=== PATIENT | male | born 1985 | race Caucasian/White ===

== ENCOUNTER 2018-01-10 07:18 | Emergency (ER) | payer OTHER ==
[2018-01-10] MEDS ORDERED: ONDANSETRON 4 MG/2 ML VIAL IVP STA (07:32)
[2018-01-10] MEDS ORDERED: KETOROLAC 30 MG/ML 1 ML VIAL IVP STA (07:32)
[2018-01-10] MEDS ORDERED: SODIUM CHLORIDE 0.9% 1,000 ML IV STA (07:32)
--- NOTE | 2018-01-10 07:35 | ED ---
General Adult HPI - General Chief complaint: Abdominal Pain Stated complaint: left side pain Time Seen by Provider: 01/10/18 07:18 Source: patient, RN notes reviewed Mode of arrival: ambulatory Limitations: no limitations - History of Present Illness Initial comments: This is a 32-year-old male who presents emergency Department complaining of left sided back pain which she states is moved to his left flank. Patient states it started at 5:30 this morning woke him up he states the pain was severe. Patient states he is also nauseated and has been vomiting with the pain. Patient denies any diarrhea. Patient denies any fever chills. Patient states she's had episodes of this back pain throughout the month and usually starts in the morning. Patient states he believes it was on both sides however. Patient denies any hematuria urinary frequency or dysuria. Patient denies any history of kidney stones for himself or his family. Patient denies any abdominal surgeries. Patient denies any chest pain difficulty breathing or shortness of breath per patient denies any cough. Patient denies any lightheadedness or dizziness. Patient denies any numbness or weakness. - Related Data Home Medications Medication Instructions Recorded Confirmed No Known Home Medications 08/06/14 08/06/14 Allergies Allergy/AdvReac Type Severity Reaction Status Date / Time No Known Allergies Allergy Verified 08/06/14 04:35 Review of Systems ROS Statement: Those systems with pertinent positive or pertinent negative responses have been documented in the HPI. ROS Other: All systems not noted in ROS Statement are negative. Past Medical History Past Medical History: No Reported History Additional Past Medical History / Comment(s): MVP History of Any Multi-Drug Resistant Organisms: None Reported Past Surgical History: No Surgical Hx Reported Past Psychological History: No Psychological Hx Reported Smoking Status: Current every day smoker Past Alcohol Use History: Rare Past Drug Use History: Marijuana General Exam - General Exam Comments Initial Comments: GENERAL: Patient is well-developed and well-nourished. Patient is nontoxic and well- hydrated and is in moderate distress. ENT: Neck is soft and supple. No significant lymphadenopathy is noted. Oropharynx is clear. Moist mucous membranes. Neck has full range of motion without eliciting any pain. EYES: The sclera were anicteric and conjunctiva were pink and moist. Extraocular movements were intact and pupils were equal round and reactive to light. Eyelids were unremarkable. PULMONARY: Unlabored respirations. Good breath sounds bilaterally. No audible rales rhonchi or wheezing was noted. CARDIOVASCULAR: There is a regular rate and rhythm without any murmurs gallops or rubs. ABDOMEN: Soft and nontender with normal bowel sounds. No palpable organomegaly was noted. There is no palpable pulsatile mass. SKIN: Skin is clear with no lesions or rashes and otherwise unremarkable. NEUROLOGIC: Patient is alert and oriented x3. Cranial nerves II through XII are grossly intact. Motor and sensory are also intact. Normal speech, volume and content. Symmetrical smile. MUSCULOSKELETAL: Normal extremities with adequate strength and full range of motion. No lower extremity swelling or edema. No calf tenderness. Patient has some left-sided CVA tenderness LYMPHATICS: No significant lymphadenopathy is noted PSYCHIATRIC: Normal psychiatric evaluation. Limitations: no limitations Course Vital Signs 01/10/18 07:19 Temperature 98.2 F Pulse Rate 73 Respiratory 18 Rate Blood Pressure 147/91 O2 Sat by Pulse 98 Oximetry Medical Decision Making - Medical Decision Making CT of the abdomen pelvis show moderate constipation no nephrolithiasis or hydronephrosis. No acute findings to explain the patient's pain. - Lab Data Result diagrams: 01/10/18 07:33 01/10/18 07:33 Lab Results 01/10/18 01/10/18 01/10/18 Range/Units 07:33 07:33 07:33 WBC 8.9 (3.8-10.6) k/uL RBC 4.54 (4.30-5.90) m/uL Hgb 13.9 (13.0-17.5) gm/dL Hct 40.4 (39.0-53.0) % MCV 89.0 (80.0-100.0) fL MCH 30.6 (25.0-35.0) pg MCHC 34.4 (31.0-37.0) g/dL RDW 12.7 (11.5-15.5) % Plt Count 266 (150-450) k/uL Neutrophils % 75 % Lymphocytes % 17 % Monocytes % 6 % Eosinophils % 2 % Basophils % 0 % Neutrophils # 6.6 (1.3-7.7) k/uL Lymphocytes # 1.5 (1.0-4.8) k/uL Monocytes # 0.5 (0-1.0) k/uL Eosinophils # 0.1 (0-0.7) k/uL Basophils # 0.0 (0-0.2) k/uL Sodium 142 (137-145) mmol/L Potassium 4.9 (3.5-5.1) mmol/L Chloride 108 H (98-107) mmol/L Carbon Dioxide 28 (22-30) mmol/L Anion Gap 6 mmol/L BUN 21 H (9-20) mg/dL Creatinine 1.01 (0.66-1.25) mg/dL Est GFR (CKD-EPI)AfAm >90 (>60 ml/min/1.73 sqM) Est GFR (CKD-EPI)NonAf >90 (>60 ml/min/1.73 sqM) Glucose 105 H (74-99) mg/dL Calcium 9.6 (8.4-10.2) mg/dL Total Bilirubin 0.3 (0.2-1.3) mg/dL AST 19 (17-59) U/L ALT 37 (21-72) U/L Alkaline Phosphatase 55 (38-126) U/L Total Protein 6.5 (6.3-8.2) g/dL Albumin 4.0 (3.5-5.0) g/dL Amylase 54 (30-110) U/L Lipase 68 (23-300) U/L Urine Color Yellow Urine Appearance Clear (Clear) Urine pH 5.5 (5.0-8.0) Ur Specific [place] 1.017 (1.001-1.035) Urine Protein Trace H (Negative) Urine Glucose (UA) Negative (Negative) Urine Ketones Negative (Negative) Urine Blood Large H (Negative) Urine Nitrite Negative (Negative) Urine Bilirubin Negative (Negative) Urine Urobilinogen <2.0 (<2.0) mg/dL Ur Leukocyte Esterase Negative (Negative) Urine RBC >182 H (0-5) /hpf Urine WBC 1 (0-5) /hpf Urine Mucus Few H (None) /hpf Disposition Clinical Impression: Left flank pain, Hematuria Disposition: HOME SELF-CARE Condition: Good Instructions: Hematuria (ED), Flank Pain (ED) Additional Instructions: Patient is to follow-up with urology for hematuria. Is patient prescribed a controlled substance at d/c from ED?: No Referrals: None,Stated [Primary Care Provider] - 1-2 days Time of Disposition: 09:57
--- NOTE | 2018-01-10 08:16 | CT ---
EXAMINATION TYPE: CT abdomen pelvis wo con DATE OF EXAM: 01/10/2018 COMPARISON: None HISTORY: Lt flank pain CT DLP: 460.6 mGycm Automated exposure control for dose reduction was used. TECHNIQUE: Helical acquisition of images was performed from the lung bases through the pelvis. FINDINGS: LUNG BASES: Bibasilar subsegmental dependent atelectasis is noted. LIVER/GB: The liver has an unremarkable unenhanced morphology. No cholelithiasis is seen. PANCREAS: No significant abnormality is seen. SPLEEN: No splenomegaly. Splenule is noted adjacent to the [place] spleen. ADRENALS: No nodularity or thickening. KIDNEYS: No significant abnormality is seen. FREE AIR: No free air is visualized ADENOPATHY: No greater than 1 cm short axis lymph nodes are noted within the abdomen or pelvis. REPRODUCTIVE ORGANS: No significant abnormality is seen URINARY BLADDER: No significant abnormality is seen. No urinary bladder calculi are present. OSSEOUS STRUCTURES: Probable vertebral body hemangioma is seen of the L4 vertebral body. Osseous str uctures appear intact. BOWEL: There is a moderate amount retained colonic stool seen. Appendix is air-filled and within norm al limits of size. Long segment decompression of the sigmoid colon is noted without proximal dilatati on therefore likely representative personal service of colonic spasm. IMPRESSION: 1. NO HYDRONEPHROSIS OR NEPHROLITHIASIS. NO URINARY BLADDER CALCULI ARE SEEN. 2. LONG SEGMENT SIGMOID DECOMPRESSION IS LIKELY RUBBISH COLLECTION SUPERVISOR OF COLONIC SPASM RATHER THAN STRICTURE THERE IS NO PROXIMAL DILATATION. NO SURROUNDING INFLAMMATORY FAT STRANDING TO SUGGEST COLITIS. OV ERALL THERE IS A MODERATE AMOUNT RETAINED COLONIC STOOL.
[2018-01-10 08:31] LABS: Appearance,Urine Clear (Clear); Bilirubin,Urine Negative (Negative); Blood,Urine Large (Negative); Color,Urine Yellow; Glucose,Urine (UA) Negative (Negative); Ketones,Urine Negative (Negative); Leukocyte Esterase,Urine Negative (Negative); Mucus,Urine Few /hpf; Nitrite,Urine Negative (Negative); PH, Urine 5.5 (5.0-8.0); Protein,Urine Trace (Negative); RBC,Urine >182 /hpf (0-5); Specific Gravity,Urine 1.017 (1.001-1.035); Urobilinogen,Urine <2.0 mg/dL (<2.0); WBC,Urine 1 /hpf (0-5)
[2018-01-10 08:34] LABS: Basophils % (A) 0 %; Eosinophils # (A) 0.1 k/uL (0-0.7); Eosinophils % (A) 2 %; HCT 40.4 % (39.0-53.0); HGB 13.9 gm/dL (13.0-17.5); Lymphocytes # (A) 1.5 k/uL (1.0-4.8); Lymphocytes % (A) 17 %; MCH 30.6 pg (25.0-35.0); MCHC 34.4 g/dL (31.0-37.0); Mean Platelet Volume 6.1; Monocytes # (A) 0.5 k/uL (0-1.0); Monocytes % (A) 6 %; Neutrophils # (A) 6.6 k/uL (1.3-7.7); Neutrophils % (A) 75 %; Platelet Count 266 k/uL (150-450); RBC 4.54 m/uL (4.30-5.90); RDW 12.7 % (11.5-15.5); WBC 8.9 k/uL (3.8-10.6)
[2018-01-10 08:39] LABS: ALT 37 U/L (21-72); AST 19 U/L (17-59); Alkaline Phosphatase 55 U/L (38-126); Amylase 54 U/L (30-110); Anion Gap 6 mmol/L; Blood Urea Nitrogen 21 mg/dL (9-20); Calcium 9.6 mg/dL (8.4-10.2); Carbon Dioxide 28 mmol/L (22-30); Chloride 108 mmol/L (98-107); Glucose 105 mg/dL (74-99); Lipase 68 U/L (23-300); Potassium 4.9 mmol/L (3.5-5.1); Sodium 142 mmol/L (137-145); Total Bilirubin 0.3 mg/dL (0.2-1.3); Total Protein 6.5 g/dL (6.3-8.2)
--- NOTE | 2018-01-10 09:29 | XR ---
EXAMINATION TYPE: XR KUB DATE OF EXAM: 01/10/2018 9:25 AM CLINICAL HISTORY: Abdominal pain TECHNIQUE: Single upright image of the abdomen is obtained. COMPARISON: None. FINDINGS: Few small bowel air-fluid levels are scattered throughout the abdomen without dilated large or small bowel. There is a moderate amount retained colonic stool throughout the colon. Scattered ga s is seen in nondilated small bowel loops. Gas and fecal material is seen in nondilated colon. There is no visceromegaly, pneumoperitoneum, or abnormal calcification appreciated. The lung bases are jan r and the osseous structures are unremarkable other than minimal left basilar atelectasis near the co stophrenic angle. IMPRESSION: Diffuse scattered small bowel air-fluid levels are seen without dilation of large or smal l bowel. Findings could be on the basis of enteritis or mild ileus.
[2018-01-10 10:15] VITALS: BP 137/56; PULSE 75; RESP 19; TEMP 97.9
[2018-01-12 12:38] LABS: N. gonorrhoeae,PCR Negative (Neg,Equiv); Neisseria Source Urine
[2018-01-12 13:13] LABS: C. trachomatis,PCR Negative (Neg,Equiv); Chlamydia trachomatis Source Urine
== END 2018-01-10 10:07 | disposition home or self-care (01) ==
LOC: EC 07:18
DX: R31.9 Hematuria, unspecified (principal); R10.9 Unspecified abdominal pain; K59.00 Constipation, unspecified; R11.2 Nausea with vomiting, unspecified; F17.200 Nicotine dependence, unspecified, uncomplicated
CPT/HCPCS: 36415; 80053; 82150; 83690; 85025; 81001; 87491; 87591; 87086; 74018; 74176; 99284; 96374; 96375; 96361; J2405; J1885

== ENCOUNTER 2018-12-16 11:06 | Emergency (ER) | payer OTHER ==
[2018-12-16 11:16] VITALS: TEMP 98.5
[2018-12-16] MEDS ORDERED: HYDROmorphone 0.5 MG/0.5 ML SYRINGE IVP STA ×2 (11:19→15:30)
--- NOTE | 2018-12-16 11:53 | ED ---
Fall HPI <Niels Selby - Last Filed: 12/16/18 14:30> - General Source: patient Mode of arrival: ambulatory <Evie Boss - Last Filed: 12/16/18 19:12> - General Chief Complaint: Fall Stated Complaint: Fall-[facility] Time Seen by Provider: 12/16/18 11:12 - History of Present Illness Initial Comments: Patient is a 33-year-old male presenting to the emergency department via EMS after falling at work today. Patient states he was on a ladder approximately 10 feet off the ground, pulling a piece of siding off of a house when the siding gave out more than he was ready for, and he fell backwards. Patient states he landed on both feet and then fell back. Patient's only complaint is right ankle pain and right knee pain. Patient arrives with his right lower extremity splinted and obvious deformity. Patient denies hitting his head or LOC. Denies back pain or hip pain. Denies any other pain at this time. Patient was given 10 of morphine in the ambulance prior to arrival. Patient denies any previous injuries to his right lower extremity. Patient admits to history of MVP, and no other pertinent past medical history and takes no medications. Upon arrival to the ER, vital signs are stable. Patient's pain level is still 9/ 10. (Evie Boss) - Related Data Previous Rx's Medication Instructions Recorded HYDROcodone/APAP 7.5-325MG [[place] 1 tab PO Q6HR PRN 3 Days #12 tab 12/16/18 7.5-325] Allergies Allergy/AdvReac Type Severity Reaction Status Date / Time No Known Allergies Allergy Verified 12/16/18 11:16 Review of Systems ROS Other: All systems not noted in ROS Statement are negative. <Niels Selby - Last Filed: 12/16/18 14:30> ROS Other: All systems not noted in ROS Statement are negative. <Evie Boss - Last Filed: 12/16/18 19:12> ROS Statement: Those systems with pertinent positive or pertinent negative responses have been documented in the HPI. Past Medical History Past Medical History: No Reported History Additional Past Medical History / Comment(s): MVP History of Any Multi-Drug Resistant Organisms: None Reported Past Surgical History: No Surgical Hx Reported Past Psychological History: No Psychological Hx Reported Smoking Status: Former smoker Past Alcohol Use History: None Reported Past Drug Use History: Marijuana <Evie Boss Carlotta - Last Filed: 12/16/18 19:12> General Exam Limitations: physical limitation <Evie Boss - Last Filed: 12/16/18 19:12> - General Exam Comments Initial Comments: GENERAL: Well-appearing, well-nourished and in mild distress secondary to pain. HEAD: Atraumatic, normocephalic. EYES: Pupils equal round and reactive to light, extraocular movements intact, sclera anicteric, conjunctiva are normal. ENT: Nares patent, oropharynx clear without exudates. Moist mucous membranes. NECK: Normal range of motion, supple without lymphadenopathy or JVD. No pain with palpation. LUNGS: Breath sounds clear to auscultation bilaterally and equal. No wheezes rales or rhonchi. HEART: Regular rate and rhythm without murmurs, rubs or gallops. ABDOMEN: Soft, nontender, normoactive bowel sounds. No guarding, no rebound. No masses appreciated. EXTREMITIES: Obvious deformity of the right medial ankle. Pain with palpation of the right ankle as well as the right knee. Patient is neurovascular intact. There is some bruising surrounding the medial malleolus. Patient is able to wiggle his toes. Patient has no pain with palpation of bilateral hips, low back, upper back. NEUROLOGICAL: Cranial nerves II through XII grossly intact. Normal speech. PSYCH: Normal mood, normal affect. SKIN: Warm, Dry, normal turgor, no rashes or lesions noted. (Evie Boss) Course Vital Signs 12/16/18 12/16/18 12/16/18 11:10 11:12 11:30 Temperature 98.5 F Pulse Rate 77 Respiratory 18 Rate Blood Pressure 138/96 138/96 O2 Sat by Pulse 94 L 97 Oximetry 12/16/18 12/16/18 12/16/18 12:00 13:30 13:45 Temperature Pulse Rate 76 71 Respiratory 13 7 L Rate Blood Pressure 130/90 119/78 108/66 O2 Sat by Pulse 94 L 96 Oximetry 12/16/18 12/16/18 12/16/18 13:50 13:55 14:00 Temperature Pulse Rate 85 84 85 Respiratory 12 18 12 Rate Blood Pressure 121/77 121/77 121/77 O2 Sat by Pulse 94 L 97 92 L Oximetry 12/16/18 12/16/18 12/16/18 14:05 14:10 14:15 Temperature Pulse Rate 80 73 77 Respiratory 9 L 12 13 Rate Blood Pressure 112/73 112/73 112/73 O2 Sat by Pulse 96 95 94 L Oximetry 12/16/18 12/16/18 12/16/18 14:17 14:20 14:25 Temperature Pulse Rate 82 79 105 H Respiratory 18 8 L 23 Rate Blood Pressure 123/78 123/78 122/80 O2 Sat by Pulse 100 100 100 Oximetry 12/16/18 12/16/18 12/16/18 14:30 14:33 14:35 Temperature Pulse Rate 81 76 66 Respiratory 14 20 15 Rate Blood Pressure 98/82 119/80 119/80 O2 Sat by Pulse 98 98 99 Oximetry 12/16/18 12/16/18 12/16/18 14:40 14:45 17:25 Temperature 98.5 F Pulse Rate 90 83 83 Respiratory 10 L 14 14 Rate Blood Pressure 118/73 127/84 121/81 O2 Sat by Pulse 95 96 96 Oximetry Procedures - Orthopedic Fracture Reduction Fracture #1 Consent Obtained: verbal consent Side: right Fracture Reduction Location: tibia, fibula Technique: traction/counter-traction Post Reduction X-rays Demonstrate: acceptable reduction Post-Reduction Neuro Exam: intact Post-Reduction Vascular Exam: intact Splint Applied: Yes Patient Tolerated Procedure: well - Orthopedic Splinting/Casting Injury #1 Side: left Lower Extremity Injury Location: long leg Lower Extremity Immobilizer: stirrup splint - Procedural Sedation Procedural Sedation Start Time: 14:15 Procedural Sedation Stop Time: 14:30 Indications: fracture/dislocation reduction Preparation: pipe stem sawyer applied, pulse oximeter, supplemental O2 applied IV Etomidate Dose (mgs): 20 Complications: none Patient Tolerated Procedure: well <Niels Selby - Last Filed: 12/16/18 14:30> Medical Decision Making <Niels Selby - Last Filed: 12/16/18 14:30> <Evie Boss - Last Filed: 12/16/18 19:12> - Medical Decision Making I, Vj Selby, personally saw and examined the patient. I have reviewed and agree with the PA findings, including all diagnostic interpretations and treatment plans as written unless otherwise stated. I was present for the watson portions of any procedures performed and the inclusive time noted for any critical care statement. (Niels Selby) Patient is a 33-year-old male presenting after follow-up the lateral with an obvious right ankle deformity. X-rays reveal a right tri-mallear fracture, with displacement. Patient is neurovascular intact. Patient was given 0.5mg Dilaudid which did improve his pain. Spoke with orthopedic on-call, ASHA Mckeon, Who recommended reducing the fracture, splinting and they will see him in the office tomorrow. Conscious sedation was performed along with Dr. Selby. Patient's ankle was reduced and splinted. Post reduction films show some interval reduction of his medial malleolus fracture, angulation of the distal fibular fracture, and of the subluxation at the tibiotalar joint. Patient remains neurovascularly intact post reduction. Strong dorsal pedis pulse. Patient tolerated procedure well. Patient's vital signs remained stable post procedure. Patient is stable for discharge at this time. Patient will follow- up with Dr. Gutierrez tomorrow in his office. Patient was sent home with [place] for pain control. Patient will elevate the leg and remain nonweightbearing. Return parameters were discussed with the patient and he verbalized understanding. (Evie Boss) Disposition <Niels Selby - Last Filed: 12/16/18 14:30> Is patient prescribed a controlled substance at d/c from ED?: Yes When asked, does pt state using other controlled substances?: No If prescribed controlled substance>3 days was MAPS reviewed?: Prescribed <3 Days If opioid is for acute pain is fill amount 7 days or less?: No If Rx opioid, was Start Talking consent form obtained?: Yes <Evie Boss - Last Filed: 12/16/18 19:12> Clinical Impression: Closed trimalleolar fracture of right ankle, Fall Disposition: HOME SELF-CARE Condition: Stable Instructions (If sedation given, give patient instructions): Ankle Fracture (ED), Procedural Sedation (ED) Additional Instructions: Please return to the Emergency Department if symptoms worsen or any other concerns. Follow-up with Dr. Anthony tomorrow as discussed. Continue to ice and elevate the right ankle. Non-weightbearing. Prescriptions: HYDROcodone/APAP 7.5-325MG [[place] 7.5-325] 1 tab PO Q6HR PRN 3 Days #12 tab PRN Reason: Pain Referrals: None,Stated [Primary Care Provider] - 1-2 days Fransico Gutierrez MD [STAFF PHYSICIAN] - 1-2 days
--- NOTE | 2018-12-16 12:23 | XR ---
EXAMINATION TYPE: XR tibia fibula RT, XR knee limited RT, XR foot limited RT, XR ankle limited RT DATE OF EXAM: 12/16/2018 CLINICAL HISTORY: pain TECHNIQUE: AP and lateral images of the right tibia and fibula and right ankle are obtained. COMPARISON: None. FINDINGS: Comminuted fracture distal right fibula approximately 8 cm from the ankle mortise. Displace ment is noted at 5 mm. There is disruption of the ankle mortise. There is medial malleolar fracture n oted as well. Atherosclerotic posterior malleolar fracture. Extensive soft tissue swelling and deform ity noted. IMPRESSION: 1. Comminuted fracture distal fibula as well as displaced medial malleolar fracture and posterior mal leolar fracture noted. Disruption ankle mortise. EXAMINATION TYPE: XR tibia fibula RT, XR knee limited RT, XR foot limited RT, XR ankle limited RT DATE OF EXAM: 12/16/2018 CLINICAL HISTORY: pain TECHNIQUE: Frontal, lateral images of the right foot are obtained. COMPARISON: None. FINDINGS: There is no acute fracture/dislocation evident. The joint spaces appear within normal malone its. The overlying soft tissue appears unremarkable. IMPRESSION: There is no acute fracture or dislocation. ICD 10 NO FRACTURE, INITIAL EVALUATION EXAMINATION TYPE: XR tibia fibula RT, XR knee limited RT, XR foot limited RT, XR ankle limited RT DATE OF EXAM: 12/16/2018 CLINICAL HISTORY: pain TECHNIQUE: Two views of the right knee are obtained. COMPARISON: None. FINDINGS: There is no acute fracture/dislocation. The tri-compartment joint spaces appear within no rmal limits. The overlying soft tissue appears unremarkable. IMPRESSION: There is no acute fracture or dislocation.ICD 10 NO FRACTURE, INITIAL EVALUATION
[2018-12-16] MEDS ORDERED: ETOMIDATE 2 MG/ML 10 ML VIAL IVP STA ×2 (13:03→14:38)
[2018-12-16] MEDS ORDERED: MORPHINE SULFATE 4 MG/ML SYRINGE IVP STA (14:38)
[2018-12-16 14:47] VITALS: PULSE 83; RESP 14
--- NOTE | 2018-12-16 14:54 | XR ---
Right ankle HISTORY: Post reduction 2 views of the right ankle correlated to prior exam on same date at earlier time. There is been some interval reduction of patient's medial malleolar fracture, perhaps some improvemen t in angulation of the distal fibular diaphyseal comminuted fracture, an some reduction of the sublux ation at the tibiotalar joint. There is overlying splint material. Soft tissue swelling is noted. Pos terior malleolar fracture shows minimal displacement. IMPRESSION: Interval changes as described.
[2018-12-16 17:26] VITALS: BP 121/81
== END 2018-12-16 17:15 | disposition home or self-care (01) ==
LOC: EC 11:06
DX: S82.851A Displaced trimalleolar fracture of right lower leg, initial encounter for closed fracture (principal); S82.51XA Displaced fracture of medial malleolus of right tibia, initial encounter for closed fracture; S82.61XA Displaced fracture of lateral malleolus of right fibula, initial encounter for closed fracture; Z87.891 Personal history of nicotine dependence; W11.XXXA Fall on and from ladder, initial encounter; Y93.89 Activity, other specified; Y92.69 Other specified industrial and construction area as the place of occurrence of the external cause; Y99.0 Civilian activity done for income or pay
CPT/HCPCS: 73590; 73560; 73600; 73620; 99284; 96374; 96375; 96376; 27752; 99152; J2270; J1170

== ENCOUNTER → 2018-12-22 | Outpatient (CLI) | payer SELFPAY | END | disposition home or self-care (01) | LOC: LABWHC1 12:33 | PROVIDERS: ATTEND Orthopaedic Surgery | DX: M25.571 Pain in right ankle and joints of right foot (principal); S82.851A Displaced trimalleolar fracture of right lower leg, initial encounter for closed fracture | CPT/HCPCS: 36415; 93005 ==

== ENCOUNTER 2018-12-25 10:08 | Emergency (ER) | payer OTHER ==
[2018-12-25 10:23] VITALS: BP 125/82; PULSE 96; RESP 18; TEMP 99.3
--- NOTE | 2018-12-25 10:29 | ED ---
Lower Extremity Injury HPI - General Chief Complaint: Extremity Injury, Lower Stated Complaint: [facility]HS - knee pain Time Seen by Provider: 12/25/18 10:13 Source: patient, RN notes reviewed, old records reviewed Mode of arrival: ambulatory Limitations: no limitations - History of Present Illness Initial Comments: Patient is a 33-year-old male, who presents emergency Department today with complaints of pain and injury to his left knee. Patient reports that he fell last week, and shattered his right lower extremity. He is scheduled today to have surgery by Dr. Dr. Gutierrez on his right lower leg. Patient reports that he fell 2 days ago injuring his left knee again while using crutches. He states he has not been able to move and has been sitting in chair since that time. Patient states that he came here via EMS because he needed a ride to get to the hospital for her scheduled surgery for his right leg. He also reports he has been out of his pain medication. - Related Data Home Medications Medication Instructions Recorded Confirmed HYDROcodone/APAP 7.5-325MG [[place] 1 - 2 tab PO Q6HR PRN 12/22/18 12/22/18 7.5-325] Ibuprofen 800 mg PO Q8H PRN 12/22/18 12/22/18 Allergies Allergy/AdvReac Type Severity Reaction Status Date / Time No Known Allergies Allergy Verified 12/25/18 10:18 Review of Systems ROS Statement: Those systems with pertinent positive or pertinent negative responses have been documented in the HPI. ROS Other: All systems not noted in ROS Statement are negative. Past Medical History Past Medical History: No Reported History Additional Past Medical History / Comment(s): MVP History of Any Multi-Drug Resistant Organisms: None Reported Past Surgical History: No Surgical Hx Reported Past Psychological History: No Psychological Hx Reported Smoking Status: Current every day smoker Past Alcohol Use History: None Reported Past Drug Use History: Marijuana General Exam - General Exam Comments Initial Comments: 33-year-old male. Alert and oriented. No significant distress at this time. Limitations: no limitations General appearance: alert, in no apparent distress Head exam: Present: atraumatic, normocephalic, normal inspection Eye exam: Present: normal appearance, PERRL, EOMI. Absent: scleral icterus, conjunctival injection, periorbital swelling ENT exam: Present: normal exam, mucous membranes moist Neck exam: Present: normal inspection. Absent: tenderness, meningismus, lymphadenopathy Respiratory exam: Present: normal lung sounds bilaterally. Absent: respiratory distress, wheezes, rales, rhonchi, stridor Cardiovascular Exam: Present: regular rate GI/Abdominal exam: Present: soft, normal bowel sounds. Absent: distended, tenderness, guarding, rebound, rigid Extremities exam: Present: normal inspection, full ROM, normal capillary refill. Absent: tenderness, pedal edema, joint swelling, calf tenderness Left Upper Leg exam: Present: normal inspection, full ROM Knee exam: Present: normal inspection, tenderness (over medial mensiscus). Absent: full ROM (Patient refuses to do any range of motion of left knee) Lower Leg exam: Present: normal inspection, full ROM Ankle exam: Present: normal inspection, full ROM Foot/Toe exam: Present: normal inspection, full ROM Neurovascular tendon exam: Present: no vascular compromise Gait: antalgic (Patient does have a short leg posterior splint on the right leg. Patient has full range of motion of toes and normal capillary refill.), unable to bear weight Back exam: Present: normal inspection Neurological exam: Present: alert, oriented X3, CN II-XII intact Psychiatric exam: Present: normal affect, normal mood Skin exam: Present: warm, dry, intact, normal color. Absent: rash Course Vital Signs 12/25/18 10:19 Temperature 99.3 F Pulse Rate 96 Respiratory 18 Rate Blood Pressure 125/82 O2 Sat by Pulse 95 Oximetry Medical Decision Making - Medical Decision Making This is a 33-year-old male, he presents today for concern for a fall, injuring his left knee and leg. He is scheduled to have surgery in 45 minutes upon arriving to emergency department for his right leg. Patient states that he needed a ride to the hospital mainly was recently came. Patient states that he's had pain with range of motion with his left knee. X-rays of left knee were completed today and are negative for fracture. He has 2+ dorsalis pedis pulse and full range motion of the toes and ankle. I discussed the Patient could have some internal derangement of the knee injuries including meniscus tears or ligamentous tears. Patient placed in Ke wrap. I called the surgery unit and they are agreed to take the Patient upstairs for surgery that was scheduled for his R leg. - Radiology Data Radiology results: report reviewed No fracture dislocation within the left knee. Disposition Clinical Impression: Left knee pain, Fall Disposition: HOME SELF-CARE Condition: Stable Is patient prescribed a controlled substance at d/c from ED?: No Referrals: None,Stated [Primary Care Provider] - 1-2 days Time of Disposition: 10:52
--- NOTE | 2018-12-25 10:39 | XR ---
EXAMINATION TYPE: XR knee complete LT DATE OF EXAM: 12/25/2018 CLINICAL HISTORY: Left knee pain with sensation of dislocation TECHNIQUE: Three views of the left knee are obtained. COMPARISON: None. FINDINGS: There is no acute fracture/dislocation evident in left knee. The tri-compartment joint sp aces appear within normal limits. The overlying soft tissue appears unremarkable. IMPRESSION: There is no acute fracture or dislocation in the left knee.
== END 2018-12-25 11:21 | disposition home or self-care (01) ==
LOC: EC 10:08
DX: S89.92XA Unspecified injury of left lower leg, initial encounter (principal); M25.562 Pain in left knee; F17.200 Nicotine dependence, unspecified, uncomplicated; W19.XXXA Unspecified fall, initial encounter
CPT/HCPCS: 99284

== ENCOUNTER 2018-12-25 11:28 | Day surgery (SDC) | payer OTHER ==
[2018-12-22 16:15] VITALS: BMI 23.0
[~2018-12-25 11:28] MED LIST: ACETAMINOPHEN TAB 500 MG TAB PO ONE; DEXAMETHASONE SOD PHOSPHATE 10 MG/ML 1 ML VIAL IV ONE; HYDROmorphone 0.5 MG/0.5 ML SYRINGE IVP PRN; LIDOCAINE 1% 20 ML VIAL (10MG/ML) FOR IV START INTRADERMA PRN; MELOXICAM 7.5 MG TAB PO ONE; MIDAZOLAM 2 MG/2 ML VIAL IV PRN; ONDANSETRON 4 MG/2 ML VIAL IVP ONE; SCOPOLAMINE 1.5MG/72HR PATCH TRANSDERM ONE
[2018-12-25] MEDS ORDERED: fentaNYL (PF) 50 MCG/ML 2 ML AMP IV ONE (11:51)
[2018-12-25] MEDS ORDERED: IV FLUID CONTINUATION 1,000 ML IV ONE (12:17)
--- NOTE | 2018-12-25 12:36 | P.ANPRN ---
Procedure Note - Anesthesia - Nerve Block Performed Right Popliteal Single Time Out Performed: Yes (1390) Date of Procedure: 12/25/18 Procedure Start Time: 11:52 Procedure Stop Time: 11:58 Location of Patient Procedure: PreOp Indication: Acute Post-Operative Pain, Dx/Pain Location, Requested by Surgeon Sedation Type: Sedate with meaningful contact maintained Position: Supine Needle Types: Pajunk Needle Gauge: 21 Ultrasound used to visualize needle placement: Yes Ultrasound used to observe medication spread: Yes Injectate: 0.5% Ropivacaine (see comment for volume) (15ml) Blood Aspirated: No Pain Paresthesia on Injection Noted: No Resistance on Injection: Normal Image Stored and Saved: Yes Events: Uneventful and Well Tolerated
--- NOTE | 2018-12-25 12:36 | P.ANPRN ---
Procedure Note - Anesthesia - Nerve Block Performed Right Adductor Canal Single Time Out Performed: Yes (1145) Date of Procedure: 12/25/18 Procedure Start Time: 11:45 Procedure Stop Time: 11:50 Location of Patient Procedure: PreOp Indication: Acute Post-Operative Pain, Dx/Pain Location, Requested by Surgeon Sedation Type: Sedate with meaningful contact maintained Preparation: Sterile Prep Position: Supine Needle Types: Pajunk Needle Gauge: 21 Ultrasound used to visualize needle placement: Yes Ultrasound used to observe medication spread: Yes Injectate: 0.5% Ropivacaine (see comment for volume) (15ml) Blood Aspirated: No Pain Paresthesia on Injection Noted: No Resistance on Injection: Normal Image Stored and Saved: Yes Events: Uneventful and Well Tolerated
[2018-12-25] MEDS ORDERED: fentaNYL (PF) 50 MCG/ML 2 ML AMP ONE (12:43)
[2018-12-25] MEDS ORDERED: HYDROmorphone (PF) 1 MG/ML ONE (12:43)
[2018-12-25] MEDS ORDERED: PROPOFOL 10 MG/ML 20 ML VIAL IV ONE (12:43)
[2018-12-25] MEDS ORDERED: MIDAZOLAM 2 MG/2 ML VIAL ONE (12:43)
[2018-12-25] MEDS ORDERED: LIDOCAINE 1% INJ 10MG/ML (20 ML MDV) ONE (12:43)
[2018-12-25] MEDS ORDERED: ROPIVACAINE 5 MG/ML 30 ML VIAL ONE (12:43)
[2018-12-25] MEDS ORDERED: ceFAZolin 1,000 MG in SODIUM CHLORIDE 0.9% 1,000 ML IRRIGATION ONE (13:22)
[2018-12-25] MEDS ORDERED: LACTATED RINGERS 1,000 ML IV ONE (14:00)
[2018-12-25] MEDS ORDERED: BACITRACIN 500 UNIT/GM OINT 28.4 GM TUBE TOPICAL ONE (14:57)
[2018-12-25] MEDS ORDERED: HYDROcodone/APAP 5-325MG 1 EACH TAB PO PRN (15:13)
[2018-12-25] MEDS ORDERED: ONDANSETRON 4 MG/2 ML VIAL IVP PRN (15:13)
[2018-12-25] MEDS ORDERED: HYDROmorphone 0.5 MG/0.5 ML SYRINGE IVP PRN ×2 (15:13)
[2018-12-25] MEDS ORDERED: SENNOSIDES-DOCUSATE SODIUM 1 EACH TAB PO PRN (15:13)
[2018-12-25] MEDS ORDERED: hydrOXYzine PAMOATE 25 MG CAP PO PRN (15:13)
--- NOTE | 2018-12-25 15:33 | P.OP ---
Date of Procedure: 12/25/18 Procedure(s) Performed: PREOPERATIVE DIAGNOSES: 1. Right ankle lateral and medial malleolus fracture, displaced Hall C fracture 2. Right ankle syndesmosis disruption, distal tibio-fibular joint POSTOPERATIVE DIAGNOSES: 1. Right ankle lateral and medial malleolus fractures, displaced 2. Right ankle syndesmosis disruption, disal tibio-fibular joint PROCEDURES PERFORMED: 1. Right ankle lateral malleolus and medial malleolus fracture open reduction and internal fixation. 2. Right ankle reduction and fixation of syndesmosis disruption with [employer] Tightrope system ANESTHESIA: service counselor: Rose Mckeon PA-C (assistance with exposure, hemostasis, retraction, fixation, closure, dressing, splint) COMPLICATIONS: None ESTIMATED BLOOD LOSS: Less than 10 mL. TOURNIQUET: approximately 80 minutes DISPOSITION: To post-anesthesia care unit INDICATIONS: The patient is a 33-year-old male who fell off a ladder, 12 feet, who presents to the operating room today for fixation of right ankle fracture. The fracture is a Hall C, with a comminuted fracture of the fibular shaft that is high enough to produce talar instability. The medial malleolus is also fractured. There does appear to be some degree of syndesmotic disruption which I plan to fix with [employer] Tightrope(s). I have discussed these issues with the patient, who wishes to proceed with the operative plan. I have explained the details of this surgery thoroughly and also explained the potential risks and complications. These are inclusive of, but not limited to: bleeding, infection, scarring, discomfort, blood vessel and nerve damage, stiffness, weakness, need for further surgery, failure to relieve symptoms, persistence or worsening of problems, , and other risks. The patient is aware of these risks, and agrees to proceed with surgery. She understands that smoking is extremely bad for fracture healing and will increase risk of complications. The consent form has been signed. PROCEDURE: After appropriate consent was obtained, the patient was taken to the operating room and placed supine on the operating table. General anesthesia was initiated. The ankle was removed from the splint and examined for any signs of significant fracture blisters or swelling that would prevent continuation of the surgery. Skin appeared healthy and intact, swellling was moderate but not excessive. The limb was prepped and draped in the usual aseptic fashion with ChloraPrep, and the patient was given IV antibiotics. The tourniquet was then inflated to 350 mmHg after careful exsanguination of the limb. Time out was called, confirming patient identity, side, procedure, and administration of antibiotics. Incision was created laterally, centered over the fracture site, for a length of approximately 9 inches. The incision was carried down through skin and into subcutaneous tissues, and blunt dissection then proceeded down to fascia. Fascia was split in line with the incision and the peroneal muscles were retracted posteriorly. The fracture site was exposed with subperiosteal dissection for as much exposure of the bone as was necessary. Fracture hematoma was evacuated and the interior of the fracture site was meticulously cleansed with irrigation and manual extraction of organizing hematoma and bone debris. The fracture was extremely comminuted and involved approximately 2.5 inches of fibular shaft. The fracture was mobilized using a watson elevator and reduction was accomplished using a cerclage #2 FiberWire, which was also used to provisionally secure the fracture. Anatomic reduction was accomplished. An interfragmentary screw was not able to be placed secondary to the com minution. Next, a recon fibular plate from [employer] was selected for size and side. It was minimally contoured to match the contour of the posterior lateral fibular shaft. The proximal holes were filled with fully threaded 3.5 mm cortical screws. Distal holes were filled with 3.5 mm locking screws. A tightrope was then placed through the fourth screw hole of the lateral plate, guided with C-arm imaging. The syndesmosis was held in a reduced position with manual pressure. A clamp was not used. The syndesmosis was held together and the tight rope was then deployed and tightened. Additionally, a fully threaded 3.5 mm cortical screw with cortical purchase within the tibia was placed just above the tight rope for additional fixation. Prior to cutting the sutures of the tightrope, the ankle was taken through range of motion and stress testing under C-arm imaging which showed excellent reduction of both the syndesmosis and the talus. The talus was stable to external rotation force as well as lateral shuck testing and extremes of flexion and extension. Screw lengths were noted to be appropriate and the incision was then irrigated thoroughly using normal saline. Next, the medial malleolus was evaluated and treated. An incision was created for approximately 1.5 inches on the medial aspect of the ankle, and carried down through skin sharply and then bluntly using a dissecting scissor down to fascia and periosteum. The fracture fragment was able to be mobilized and secured with a [id number] reduction forceps. Subsequently, a guidepin was placed across the fracture site and several adjustments were made of this guidepin so that the position was perfect on C-arm imaging. Another wire was placed parallel to the first. The outer cortex was reamed, and 2 appropriately sized 4.0 cannulated cancellus screws with long threads were inserted over the guidepin until they were fully deployed. Final C-arm images were then taken, showing anatomic alignment of the mortise and medial malleolar fracture site. Tourniquet was deflated and hemostasis was obtained using electrocautery. Fascial closure was performed with 0-Vicryl suture, subcutaneous closure with 2- 0 Vicryl suture. Skin was closed with edna. Sterile dressing was applied and well padded, well molded short leg splint was applied with the ankle in neutral. Patient tolerated the procedure well and taken to recovery room in stable condition. Sponge and needle counts were correct.Patient tolerated the procedure well and taken to recovery room in stable condition. Sponge and needle counts were correct.
--- NOTE | 2018-12-25 15:50 | XR ---
EXAMINATION TYPE: XR ankle limited RT DATE OF EXAM: 12/25/2018 COMPARISON: NONE TECHNIQUE: Two views submitted HISTORY: Post op FINDINGS: There is postsurgical change in near anatomic alignment. There is soft tissue edema and emphysema. IMPRESSION: 1. Postoperative change. Appears in near-anatomic alignment
--- NOTE | 2018-12-25 15:50 | FL ---
EXAMINATION TYPE: FL guidance operating room DATE OF EXAM: 12/25/2018 HISTORY: Flouroscopy time 20 seconds of fluoroscopy provided. IMPRESSION: 1. Fluoroscopy time.
[2018-12-25] MEDS: HYDROcodone/APAP 5-325MG 1 EACH TAB PO PRN (16:27)
[2018-12-25 16:40] LABS: Basophils % (A) 0 %; Eosinophils % (A) 0 %; HCT 44.1 % (39.0-53.0); HGB 14.3 gm/dL (13.0-17.5); Lymphocytes # (A) 0.4 k/uL (1.0-4.8); Lymphocytes % (A) 3 %; MCH 29.6 pg (25.0-35.0); MCHC 32.5 g/dL (31.0-37.0); MCV 91.1 fL (80.0-100.0); Mean Platelet Volume 5.5; Monocytes # (A) 0.2 k/uL (0-1.0); Monocytes % (A) 1 %; Neutrophils # (A) 13.2 k/uL (1.3-7.7); Neutrophils % (A) 95 %; Platelet Count 430 k/uL (150-450); RBC 4.84 m/uL (4.30-5.90); RDW 11.9 % (11.5-15.5); WBC 13.8 k/uL (3.8-10.6)
[2018-12-25] MEDS: LACTATED RINGERS 1,000 ML IV SCH ×2 (17:43→17:44)
[2018-12-25] MEDS: HYDROmorphone 1 MG/ML 1 ML SYRINGE IVP PRN (20:41)
[2018-12-26] MEDS: LACTATED RINGERS 1,000 ML IV SCH ×3 (00:29→12:16)
[2018-12-26] MEDS: HYDROcodone/APAP 5-325MG 1 EACH TAB PO PRN ×2 (00:59→07:17)
[2018-12-26 01:32] VITALS: TEMP 98.3
[2018-12-26] MEDS: HYDROmorphone 1 MG/ML 1 ML SYRINGE IVP PRN (05:09)
[2018-12-26 07:30] VITALS: BP 116/72; PULSE 87; RESP 18
[2018-12-26] MEDS ORDERED: ENOXAPARIN 40 MG/0.4 ML SYRINGE SQ SCH (09:00)
--- NOTE | 2018-12-26 14:22 | P.DS ---
Providers Date of admission: 12/25/18 23:52 Expected date of discharge: 12/26/18 Attending physician: Fransico Gutierrez Primary care physician: Stated None Hospital Course: This patient is a 33 year old male that presents to [facility] yesterday 12/25/18 for operative fixation of his right ankle. He sustained an injury on 12/16/18 when he fell off a 12 foot ladder. He was initially evaluated in the [facility] ED on 12/16/18. X-rays were taken and revealed a lateral and medial malleolus fracture, displaced Hall C fracture with syndesmotic disruption. His ankle was reduced and splinted, and he was instructed to follow- up with orthopedic surgery as an outpatient. He was seen by Dr. Gutierrez in the office, and surgery was recommended. The patient also notes be began to experience left knee pain a few days ago. X-rays of his left knee taken 12/25/18 show no acute fractures or abnormalities. Dr. Gutierrez evaluated the patient in pre-op, and diagnosed the patient with a left MCL sprain and a medial meniscus tear. Knee immobilizer was applied. The patient underwent open reduction and internal fixation of the right ankle fracture on 12/25/18. The patient was admitted following the procedure for pain control and physical therapy. The procedure was performed without complication. The patient is doing fairly well on post-operative day #1. Vital signs and labs are stable on post-operative day #1. The patient was examined bedside this morning. He states he is experiencing pain in the right ankle, which is to be expected. The pain has been well-controlled on [place]. He also notes his left knee pain has improved since yesterday. He worked with physical therapy, and was cleared to return home. He is tolerating his diet well. He has not had a bowel movement post-operatively, he denies abdominal pain. He denies chest pain, shortness of breath, nausea, vomiting, fevers, chills, numbness or tingling of the right lower extremity. Vital signs stable. On examination, the patient is sitting up in bed in no apparent distress. He is alert and orientated x3. On inspection of the right lower extremity, there is a Bulky barrios splint in place. The splint is clean, dry, and intact. His toes are warm and well perfused with brisk capillary refill. He is able to wiggle his toes without issue. On inspection of the left lower extremity, there is a knee immobilizer in place. Patient has good range of motion of his left ankle and toes. Right lower extremity is warm and well perfused. Motor and sensory function are intact of the left lower extremity. Patient is discharged home today in fair condition. Please see discharge orders and med rec for accurate list of medications. Patient Condition at Discharge: Good Plan - Discharge Summary Discharge Rx Participant: Yes New Discharge Prescriptions: New Aspirin 325 mg PO DAILY #14 tab Docusate [Colace] 100 mg PO BID #60 capsule HYDROcodone/APAP 7.5-325MG [[place] 7.5-325] 1 tab PO Q4-6H PRN 7 Days #30 tab PRN Reason: Pain No Action Ibuprofen 800 mg PO Q8H PRN PRN Reason: Pain HYDROcodone/APAP 7.5-325MG [[place] 7.5-325] 1 - 2 tab PO Q6HR PRN PRN Reason: Pain Discharge Medication List HYDROcodone/APAP 7.5-325MG [[place] 7.5-325] 1 - 2 tab PO Q6HR PRN 12/22/18 [History] Ibuprofen 800 mg PO Q8H PRN 12/22/18 [History] Aspirin 325 mg PO DAILY #14 tab 12/25/18 [Rx] Docusate [Colace] 100 mg PO BID #60 capsule 12/25/18 [Rx] HYDROcodone/APAP 7.5-325MG [[place] 7.5-325] 1 tab PO Q4-6H PRN 7 Days #30 tab [Rx] Follow up Appointment(s)/Referral(s): [facility] [NON-STAFF] - As Needed (They will deliever your walker to the [facility] address listed, Please call them for questions. ) Fransico Gutierrez MD [STAFF PHYSICIAN] - 2 Weeks Patient Instructions/Handouts: External Fixation of an Ankle Fracture (DC) Activity/Diet/Wound Care/Special Instructions: - Strict non weight bearing on your operative leg. Keep splint clean, dry, and intact. - Keep left knee immobilizer on at all times. Weight bearing as tolerated on your left knee with the knee immobilizer and a walker. - Take pain medications as prescribed. Take Colace as a stool softener. Take aspirin for blood clot prevention. - Ice and elevate operative leg to decrease pain and swelling. - Follow-up with Dr. Gutierrez in the office in 2 weeks. Call with any questions or concerns, Discharge Disposition: HOME SELF-CARE
== END 2018-12-26 14:18 | disposition home or self-care (01) ==
LOC: OR 11:28 → 4SSUR 15:29 → OR 21:19 → EDBD 23:52 → 4SSUR 23:52
PROVIDERS: ADMIT Orthopaedic Surgery; ATTEND Orthopaedic Surgery
DX: S82.841A Displaced bimalleolar fracture of right lower leg, initial encounter for closed fracture (principal); S93.439A Sprain of tibiofibular ligament of unspecified ankle, initial encounter; W11.XXXA Fall on and from ladder, initial encounter; I51.9 Heart disease, unspecified; Z79.891 Long term (current) use of opiate analgesic; Z87.891 Personal history of nicotine dependence; Y99.0 Civilian activity done for income or pay
CPT/HCPCS: 27814; 27829; 97161; 64445; 76942; 85025; 73600; G0378; C1713 ×3; J2250; J1100; J0690 ×3; J2405; J2001; J1650; J3010; J1170 ×2; J2795; J2704

== ENCOUNTER → 2018-12-30 | Outpatient (CLI) | payer SELFPAY ==
--- NOTE | 2018-12-30 16:22 | US ---
EXAMINATION TYPE: US venous doppler duplex LE RT DATE OF EXAM: 12/30/2018 4:14 PM COMPARISON: NONE CLINICAL HISTORY: I80.0 CALF PAIN, PHLEBITIS. Right calf pain. Patient just had surgery for broken b ones. On aspirin. SIDE PERFORMED: Right TECHNIQUE: The lower extremity deep venous system is examined utilizing real time linear array sonog ruben with graded compression, doppler sonography and color-flow sonography. VESSELS IMAGED: External Iliac Vein (EIV) Common Femoral Vein Deep Femoral Vein Greater Saphenous Vein * Femoral Vein Popliteal Vein Small Saphenous Vein * Proximal Calf Veins (* superficial vessels) Right Leg: Negative for DVT Grayscale, color doppler, spectral doppler imaging performed of the deep veins of the right lower ext remity. There is normal flow, compressibility, vascular waveforms. IMPRESSION: No ultrasound evidence for acute DVT in the right lower extremity.
== END | disposition home or self-care (01) ==
LOC: RADUSWWP 15:53
PROVIDERS: ATTEND Orthopaedic Surgery
DX: I80.3 Phlebitis and thrombophlebitis of lower extremities, unspecified (principal); M79.661 Pain in right lower leg

== ENCOUNTER → 2019-04-14 | Outpatient (CLI) | payer OTHER ==
[2019-04-14 12:43] VITALS: BP 126/88; PULSE 94; RESP 18
--- NOTE | 2019-04-14 13:32 | P.PAINCN ---
History of Present Illness - Reason for Consult Consult date: 04/14/19 - History of Present Illness Ry is a 33-year-old gentleman presents today as a new patient consult from Dr. Gutierrez's office. He presents today with a chief complaint of right foot pain. He is status post fall at work and had surgery in January on his right foot. He appears to have a bimalleolar fracture which was repaired surgically. He presents today because his been going to physical therapy and the therapist noticed that there is some discoloration of the right foot and wanted to be reevaluated. Dr. Gutierrez evaluate him and wanted us to look at him and evaluate for possible complex regional pain syndrome. He presents with complaints of pain and sensitivity over the right foot. He is able to tolerate a sock and shoe at this time but finds that it is painful. He finds that his foot is cold at times and is significantly discolored compared to the left. He still has some swelling over the right ankle joint and the surgical site compared to left. He does not have a significant amount of allodynia at this point but is certainly concerned about the process. He has not returned to work. [facility] and is motivated to improve his foot. He reports a VAS about 5 out of 10 most days but can be as 10 out of 10 depending on the day. He finds most pain if he bumps his foot at night. He denies any other symptoms of radiculopathy left foot. He denies any bowel or bladder incontinence. Denies any significant back pain. He denies any chest pain, shortness of breath, headaches, nausea or vomiting. Review of Systems Negative except as noted in the HPI Past Medical History Past Medical History: Mitral Valve Prolapse (MVP) Additional Past Medical History / Comment(s): FELL OFF LADDER 12/16/18 History of Any Multi-Drug Resistant Organisms: None Reported Past Surgical History: Orthopedic Surgery Additional Past Surgical History / Comment(s): SX TO RT LEG-FOR SHATTERED FIBULA/TIBULA AND ANKLE Past Anesthesia/Blood Transfusion Reactions: No Reported Reaction Past Psychological History: No Psychological Hx Reported Smoking Status: Former smoker Past Alcohol Use History: None Reported Additional Past Alcohol Use History / Comment(s): QUIT SMOKING 3 YEARS AGO Past Drug Use History: Marijuana Additional Drug Use History / Comment(s): LAST USED MARIJUANA 3 MONTHS AGO - Past Family History Mother Family Medical History: No Reported History Medications and Allergies Home Medications Medication Instructions Recorded Confirmed Type No Known Home Medications 04/01/19 04/14/19 History Allergies Allergy/AdvReac Type Severity Reaction Status Date / Time No Known Allergies Allergy Verified 04/14/19 12:39 Physical Exam Vitals: Vital Signs Pulse Resp BP Pulse Ox 04/14/19 12:30 94 18 126/88 94 L PHYSICAL EXAM: Constitutional: Awake and alert no distress Cardiovascular exam: Regular rate, no lower extremity edema, palpable pulses bilaterally Respiratory exam: No audible wheezing, no accessory muscle usage Abdominal exam: Soft nontender Muscular skeletal exam: - Cervical spine: Nontender to palpation bilaterally. Range of motion is not limited. Spurling is negative bilateral. Facet loading is negative bilaterally - Lumbar spine: Preserved lumbar lordosis. No changes in skin. Nontender palpation bilateral. Patient has full range of motion in flexion and extension as well as lateral sidebending. Straight leg raise is negative. Right foot: There is minimal swelling over the ankle compared to the left ankle joint. His right foot is noticeably discolored compared to the left foot. Right foot appears to have a bluish reddish discoloration compared to the left. The discoloration extends from the toes to about the lower ankle joint. The right foot is cold compared to left but left foot is also cold. He does have palpable pulses in the DP and PT of both feet. He has good popliteal pulses. He has slight allodynia over the lateral portion of the foot, there is no hair growth over either feet. Neuro exam: Normal sensation bilateral upper and lower extremities. Deep tendon reflexes are 2+ bilaterally. Tuttle's is negative Psychiatric exam: Cooperative, good insight Assessment and Plan Assessment: #1 postoperative pain in the right ankle #2 rule out chronic regional pain syndrome of the right ankle Plan: I had a long discussion with the patient and his case specialist regarding his foot. I do not believe he has CRPS at this time. I believe that he has some signs and some symptoms of CRPS but it is imperative that we treat this very aggressively. We discussed that the ultimate treatment for this is going to depend on his use of the ankle and continued physical therapy. We discussed using compound biomed cream over the area discussed how to apply it. We discussed that doing a lumbar sympathetic block may also offer him benefit at this time. He has discoloration of the foot, minimal allodynia, without very much hair changes over the area. The case specialist was inquiring about ordering a bone scan. I'm not sure that Oreo bone scan this time is in a change her management and we'll hold off on doing that at this time. We discussed potent ially repeating the injection 3 times to offer him the most benefit along his treatment course. Time with Patient: Greater than 30 PQRS Measure Charge Sheet PQRS Narrative: Smoking Status Former smoker Blood Pressure 126/88 Pain Intensity [Right Leg] 3 Scale Used Numeric (1 - 10) Hx Alcohol Use (MH) No Home Medications: Ambulatory Orders No Known Home Medications 04/01/19
== END | disposition home or self-care (01) ==
LOC: PNWHC3 12:22
PROVIDERS: ATTEND Hospitalist
DX: G89.18 Other acute postprocedural pain (principal); Z87.891 Personal history of nicotine dependence
CPT/HCPCS: 99211

== ENCOUNTER → 2019-07-20 | Outpatient (CLI) | payer OTHER | END | disposition home or self-care (01) | LOC: LABWHC1 11:29 | PROVIDERS: ATTEND Orthopaedic Surgery | DX: Z11.59 Encounter for screening for other viral diseases (principal) ==

== ENCOUNTER 2019-07-22 07:53 | Day surgery (SDC) | payer OTHER ==
[2019-07-21 11:09] VITALS: BMI 22.4
[~2019-07-22 07:53] MED LIST changes: -ACETAMINOPHEN TAB 500 MG TAB PO ONE; -DEXAMETHASONE SOD PHOSPHATE 10 MG/ML 1 ML VIAL IV ONE; -HYDROmorphone 0.5 MG/0.5 ML SYRINGE IVP PRN; +LACTATED RINGERS 1,000 ML IV SCH; -LIDOCAINE 1% 20 ML VIAL (10MG/ML) FOR IV START INTRADERMA PRN; -MELOXICAM 7.5 MG TAB PO ONE; -MIDAZOLAM 2 MG/2 ML VIAL IV PRN; -ONDANSETRON 4 MG/2 ML VIAL IVP ONE; -SCOPOLAMINE 1.5MG/72HR PATCH TRANSDERM ONE
[2019-07-22 08:27] VITALS: RESP 16; TEMP 98.1
[2019-07-22] MEDS ORDERED: MIDAZOLAM 2 MG/2 ML VIAL ONE (09:09)
[2019-07-22] MEDS ORDERED: ROPIVACAINE 5MG/ML 20ML VIAL ONE (09:09)
[2019-07-22] MEDS ORDERED: LIDOCAINE 1% INJ 10MG/ML (20 ML MDV) ONE (09:09)
[2019-07-22] MEDS ORDERED: LIDOCAINE 1%-EPI 1:100,000 20 ML VIAL ONE (09:09)
[2019-07-22] MEDS ORDERED: IOPAMIDOL M200 10 ML VIAL ONE (09:09)
[2019-07-22] MEDS ORDERED: DEXAMETHASONE SOD PHOSPHATE 10 MG/ML 1 ML VIAL ONE (09:09)
[2019-07-22] MEDS ORDERED: fentaNYL (PF) 50 MCG/ML 2 ML AMP ONE (09:09)
[2019-07-22] MEDS ORDERED: IV FLUID CONTINUATION 500 ML IV ONE (09:48)
--- NOTE | 2019-07-22 09:59 | P.PCN ---
Date of Procedure: 07/22/19 Description of Procedure: PREOPERATIVE DIAGNOSIS: complex regional pain syndrome.Type I , Right lower Extremities. POSTOPERATIVE DIAGNOSIS: complex regional pain syndrome.Type I , Right lower Extremities. . PROCEDURE: Right side lumbar sympathetic block with fluoroscopic guidence ANESTHESIA: Local with 1% lidocaine; IV sedation with 2mg Versed and 2ml fentanyl. EBL: None. PROCEDURE INDICATION: The patient with CRPS after injury and surgery. This is his initial sympathetic block. PROCEDURE DESCRIPTION: The patient was seen and identified in the preoperative area. Risks, benefits, complications, and alternatives were discussed with the patient. The patient agreed to proceed with the procedure and signed the consent. IV was started, and vital signs were stable. Patient was taken to the OR and time out was completed. The patient was placed in the prone position on procedure table and a pillow was placed under the abdomen to reduce lumbar lordosis. The lumbosacral area was prepped and draped in the usual sterile fashion. Critical pause was taken. Vital signs were closely monitored during the procedure. Fluoroscopy was used to identify the L3 vertebra and obliqued to the right until the transverse process covered the anterior aspect of L3 Vertebral body. Target points were marked. 5 cc Lidocaine 1% was used with a 25 guage needle to achieve adequate local anesthesia of the skin and subcutaneous tissue. A 22-guage,7-inch spinal needles were inserted through the skin at the superior lateral border above the tranverse process of the Right side of L3 vertebral body and then advanced ontil vertebral body Os was contacted. 2 ml Omnipaque 200 was injected and showed vertical spread without vascular update. Postion was confirmed under fluoroscopic guidance in oblique, anterior, and lateral views. The After satisfactory positioning of the needles, and negative aspiration of blood, CSF 2ml of 1% lidocaine with 1:100,000 and no change in heart rate or BP. Then, 10ml of 0.25% Ropivacaine + 10mg Dexamethasone was injected after negative aspiration for blood and CSF. [place] were withdrawn intact. COMPLICATIONS: None. COMMENTS: Right Temp at Medial Malleollus: 86.7 pre procedure. Post Procedure: 88.5 (5 minutes after) DISPOSITION / PLANS: The patient was placed in a supine position and transferred to the recovery area in a stable condition for observation and was discharged from the recovery room after meeting discharge criteria. Home discharge instructions given to the patient by the staff. The patient was reexamined prior to discharge. The patient will schedule a follow up in the clinic
[2019-07-22 10:06] VITALS: BP 133/78; PULSE 75
--- NOTE | 2019-07-22 10:08 | FL ---
EXAMINATION TYPE: FL guided pain mgmt statistic DATE OF EXAM: 07/22/2019 HISTORY: Fluoroscopy time 55 seconds of fluoroscopy provided. IMPRESSION: 1. Fluoroscopy time.
== END 2019-07-22 10:23 | disposition home or self-care (01) ==
LOC: ORPAIN 07:53
PROVIDERS: ATTEND Anesthesiology
DX: G90.521 Complex regional pain syndrome I of right lower limb (principal)
CPT/HCPCS: 64520; J2250; J1100; J2001; J3010; Q9966; J2795; 99152; 99153

== ENCOUNTER → 2019-07-29 | Outpatient (CLI) | payer OTHER ==
[2019-07-29 12:02] VITALS: BP 118/86; PULSE 90; RESP 16
--- NOTE | 2019-07-30 10:39 | P.PAINPG ---
Subjective Progress Note Date: 07/29/19 Ry is a 34-year-old gentleman with a chief complaint of right foot pain. He is status post fall at work and had surgery in January on his right foot. He had a bimalleolar fracture which was repaired surgically. He is being evaluated for possible complex regional pain syndrome. He underwent lumbar sympathetic block on 07/22/2019. He returns today for follow-up. He is accompanied by his director of casework. He reports that the block helped his pain overall, and reduced his pain from the knee to his foot, however he does feel the pain returning on the undersurface of his right foot. He also states that he has had right-sided groin pain since the procedure, stating that it feels pinched, it is i ntermittent, certain positions aggravate it, no relieving factors. The pain is nonradiating, and does not originate from his back. He is in the process of resuming physical therapy, and is set to undergo an evaluation on August 11 to resume physical therapy, which was stopped due to current pandemic. His primary complaint is pain and sensitivity over the right foot. He is able to tolerate a sock and shoe at this time but finds that it is painful. He finds that his foot is "on fire" at times and is significantly discolored compared to the left. He still has some swelling over the right ankle joint and the surgical site compared to left. His range of motion. He also endorses nail changes on the right side. He has not returned to work. Review of systems is negative for chest pain, shortness of breath, new onset weakness, numbness/tingling, abdominal pain, malaise, fever, night sweats, chills, homicidal or suicidal ideation, or bowel or bladder incontinence. Physical Exam Physical exam: Vitals: Reviewed in EMR GENERAL: Well appearing, in no acute distress PSYCH: Mood and affect is appropriate. Awake, alert, and oriented SKIN: Skin color, texture, turgor normal, no rashes or lesions HEENT: Normocephalic, atraumatic. EOM intact CV: No pedal edema RESP: Respirations are unlabored, no audible wheezing GI: Abdomen non-distended MUSCULOSKELETAL: Bilateral lower extremity strength is normal and symmetric. No atrophy or tone abnormalities are noted. Right lower extremity: There are areas of discoloration on the right foot compared to the left, purple in color. Right foot appears smaller than left foot. Toes appear slightly swollen compared to left foot. Nail changes are evident on right side compared to left. Surgical scars are well-healed, although he does have one palpable hardware piece on the lateral aspect of the right ankle. Range of motion of right ankle is limited. Allodynia in all 5 toes, greatest in the fifth digit- on the right side Lumbar spine: No pain to palpation over the lumbar spine and paraspinous muscles. Right groin: No obvious swelling, no palpable lumps. NEUR: No loss of sensation is noted except in right foot which has allodynia. Assessment and Plan Assessment: #1 postoperative pain in the right ankle #2 possible complex regional pain syndrome type I of the right ankle Plan: The patient has symptoms and signs of complex regional pain syndrome in the form of motor changes, sensory changes, pseudomotor changes and vasomotor changes. According to [place] criteria, he meets a diagnosis of arthritis, however, CRPS is diagnosis of exclusion, and several of these symptoms can be attributed to postsurgical pain. We will continue to aggressively treat this as CRPS. Medications: I will prescribe Lyrica 100 mg twice a day. Start talking form was initiated, opioid contract signed, a UDS sent. In the future, would consider adding nortriptyline. Referrals: To occupational therapy for desensitization and guided motor imagery. He is already set to undergo physical therapy evaluation in 2 weeks. Procedures: he would likely benefit from repeat right-sided lumbar sympathetic block, he will call us once he has initiated physical therapy and occupational therapy to schedule this. I reiterated that these blocks are to supplement response to physical therapy and occupational therapy. PQRS Measure Charge Sheet Measure #130: Documentation of Current Meds in Medical Chart: Patient's medications documented in chart Measure #226: Tobacco Use: Screen & Cessation Intervention: Pt not a tobacco user Measure #111: Pneumonia Vaccination: Pneumococcal vaccine NOT administered or previously given Measure #47: Advance Care Plan: Advance care planning discussed & documented, pt chose/unable to give Measure #412: Opioid Treatment Agreement: Documented signed opioid trtmnt agreemnt min once during opioid trtmnt Measure #408: Opioid Therapy Follow-up Evaluation: Patient had f/u eval minimum every 3 months during opioid therapy Measure #317: Preventitive Care & Scrn High Bld Press & F/U: Normal blood pressure, f/u not required Measure #128: Body Mass Index (BMI) Screening & Follow-up: BMI documented within normal parameters Measure #131: Pain Assessment & Follow-up: Pain positive & plan documented, Follow-up scheduled Measure #431: Unhealthy Alcohol Use Preventative Care & Scrn: Patient not identified as an unhealthy alcohol user PQRS Narrative: Smoking Status Former smoker Pain Intensity [Right Lower 2 Foot] Scale Used Numeric (1 - 10) Hx Alcohol Use (MH) No Home Medications: Ambulatory Orders No Known Home Medications 04/01/19 Controlled Substance Measures - Controlled Substance Measures Is patient prescribed a controlled substance at discharge?: Yes When asked, does pt state using other controlled substances?: No If prescribed controlled substance>3 days was MAPS reviewed?: Yes If Rx opioid, was Start Talking consent form obtained?: Yes If opioid is for acute pain is fill amount 7 days or less?: No Was information provided regarding opioid addiction?: Yes
== END | disposition home or self-care (01) ==
LOC: PNWHC3 11:48
PROVIDERS: ATTEND Anesthesiology
DX: G89.18 Other acute postprocedural pain (principal); M19.071 Primary osteoarthritis, right ankle and foot; I73.9 Peripheral vascular disease, unspecified; Z87.891 Personal history of nicotine dependence
CPT/HCPCS: 80307; 99211; G0482

== ENCOUNTER 2019-08-17 07:32 | Day surgery (SDC) | payer OTHER ==
[2019-08-17] MEDS ORDERED: LACTATED RINGERS 1,000 ML IV SCH (08:33)
[2019-08-17 08:38] VITALS: TEMP 97.8
[2019-08-17] MEDS ORDERED: LIDOCAINE 1% (10MG/ML) FOR IV START INTRADERMA ONE (08:44)
[2019-08-17] MEDS ORDERED: LACTATED RINGERS 1,000 ML IV ONE (08:44)
[2019-08-17] MEDS ORDERED: MIDAZOLAM 2 MG/2 ML VIAL ONE (09:11)
[2019-08-17] MEDS ORDERED: fentaNYL (PF) 50 MCG/ML 2 ML AMP ONE (09:11)
[2019-08-17] MEDS ORDERED: methylPREDNISolone ACETATE 40 MG/ML 1 ML VIAL ONE (09:11)
[2019-08-17] MEDS ORDERED: ROPIVACAINE 5MG/ML 20ML VIAL ONE (09:11)
[2019-08-17] MEDS ORDERED: IV FLUID CONTINUATION 1,000 ML IV ONE ×2 (09:38)
--- NOTE | 2019-08-17 09:38 | P.PCN ---
Date of Procedure: 08/17/19 Procedure(s) Performed: PREOPERATIVE DIAGNOSIS: complex regional pain syndrome.Type I , Right lower Extremities. POSTOPERATIVE DIAGNOSIS: complex regional pain syndrome.Type I , Right lower Extremities. . PROCEDURE: Right side lumbar sympathetic block with fluoroscopic guidence (fl uoroscopy pictures available at radiology department ) ANESTHESIA: Local with 1% lidocaine ,IV sedation with 2mg Versed and 2ml fentanyl. EBL: None. PROCEDURE INDICATION: The patient with CRPS after injury and surgery. This is his seoned lumbar sympathetic block. PROCEDURE DESCRIPTION: The patient was seen and identified in the preoperative area. Risks, benefits, complications, and alternatives were discussed with the patient. The patient agreed to proceed with the procedure and signed the consent. IV was started, and vital signs were stable. Patient was taken to the OR and time out was completed. The patient was placed in the prone position on procedure table and a pillow was placed under the abdomen to reduce lumbar lordosis. The lumbosacral area was prepped and draped in the usual sterile fashion. Critical pause was taken. Vital signs were closely monitored during the procedure. Fluoroscopy was used to identify the L3 vertebra and obliqued to the right until the transverse process covered the anterior aspect of L3 Vertebral body. Target points were marked. 5 cc Lidocaine 1% was used with a 25 guage needle to achieve adequate local anesthesia of the skin and subcutaneous tissue. A 22-guage,5-inch spinal needles were inserted through the skin at the superior lateral border above the tranverse process of the Right side of L3 vertebral body and then advanced ontil vertebral body Os was contacted. 2 ml Omnipaque 200 was injected and showed vertical spread without vascular update. Postion was confirmed under fluoroscopic guidance in oblique, anterior, and lateral views. The After satisfactory positioning of the needles, and negative aspiration of blood, CSF . Then, 10ml of 0.5% Ropivacaine + 80 mg Depo-Medrol was injected after negative aspiration for blood and CSF. [place] were withdrawn intact. COMPLICATIONS: None. DISPOSITION / PLANS: The patient was placed in a supine position and transferred to the recovery area in a stable condition for observation and was discharged from the recovery room after meeting discharge criteria. Home discharge instructions given to the patient by the staff. The patient was reexamined prior to discharge. The patient will schedule a follow up in the clinic
[2019-08-17 09:41] VITALS: RESP 16
--- NOTE | 2019-08-17 09:47 | FL ---
EXAMINATION TYPE: FL guided pain mgmt statistic DATE OF EXAM: 08/17/2019 HISTORY: Fluoroscopy time 40 seconds of fluoroscopy provided. IMPRESSION: 1. Fluoroscopy time.
[2019-08-17 09:59] VITALS: BP 131/80; PULSE 81
== END 2019-08-17 10:07 | disposition home or self-care (01) ==
LOC: ORPAIN 07:32
PROVIDERS: ATTEND Specialist
DX: G90.521 Complex regional pain syndrome I of right lower limb (principal)
CPT/HCPCS: 64520; 99152

== ENCOUNTER → 2019-09-01 | Outpatient (CLI) | payer OTHER ==
--- NOTE | 2019-09-01 14:27 | P.PAINPG ---
Subjective Progress Note Date: 09/01/19 Ry is a 34-year-old gentleman with a chief complaint of right foot pain. He is status post fall at work and had surgery in January on his right foot. He had a bimalleolar fracture which was repaired surgically. He is being evaluated for possible complex regional pain syndrome. He underwent lumbar sympathetic block on 08/17/2019. He returns today for follow-up. He reports that he did not get any significant benefit from this block, unlike the first block when he got approximately 5 days of pain relief. He was complaining of groin pain at the last visit, this has since resolved. Since his last visit, he has been to occupational therapy and is undergoing desensitization therapy, which is helping his pain significantly. He reports that prior to occupational therapy he was unable to walk in the grass, however since starting desensitization therapy he is able to walk freely in the grass. He continues to go 3 times a week. His pain is located in the top of his right foot radiating to his toes, described as a burning pain, rated as 2/10. Pain is better with occupational therapy and physical therapy, he does not describe aggravating factors. Review of systems is negative for chest pain, shortness of breath, new onset weakness, numbness/tingling, abdominal pain, malaise, fever, night sweats, chills, homicidal or suicidal ideation, or bowel or bladder incontinence. Physical Exam Physical exam: Vitals: Reviewed in EMR GENERAL: Well appearing, in no acute distress PSYCH: Mood and affect is appropriate. Awake, alert, and oriented SKIN: Skin color, texture, turgor normal, no rashes or lesions HEENT: Normocephalic, atraumatic. EOM intact CV: No pedal edema RESP: Respirations are unlabored, no audible wheezing GI: Abdomen non-distended MUSCULOSKELETAL: Bilateral lower extremity strength is normal and symmetric. No atrophy or tone abnormalities are noted. Right lower extremity: There are areas of discoloration on the right foot compared to the left, purple in color. Right foot appears smaller than left foot. Surgical scars are well-healed, although he does have one palpable hardware piece on the lateral aspect of the right ankle. Range of motion of right ankle is reduced in dorsiflexion and plantar flexion compared to the left side. Allodynia in lateral aspect of foot NEUR: No loss of sensation is noted except in right foot which has allodynia. Assessment and Plan Assessment: #1 postoperative pain in the right ankle #2 possible complex regional pain syndrome type I of the right ankle Plan: The patient has symptoms and signs of complex regional pain syndrome in the form of motor changes, sensory changes, pseudomotor changes and vasomotor changes. According to [place] criteria, he meets a diagnosis of arthritis, however, CRPS is diagnosis of exclusion, and several of these symptoms can be attributed to postsurgical pain. We will continue to aggressively treat this as CRPS. Medications: At last visit, he was prescribed Lyrica 100 mg twice a day, unfortunately he has been unable to fill this prescription as he does not have a valid identification card. He is working on obtaining one. In the future, would consider adding nortriptyline. Referrals: A new prescription To occupational therapy for desensitization and guided motor imagery was provided to the patient so that he can continue occupational therapy Procedures: None currently. In the future, if he has a flareup, we can perform repeat right lumbar sympathetic block. I reiterated that these blocks are to supplement response to physical therapy and occupational therapy. Follow-up: As needed PQRS Measure Charge Sheet Measure #130: Documentation of Current Meds in Medical Chart: Patient's medications documented in chart Measure #226: Tobacco Use: Screen & Cessation Intervention: Pt not a tobacco user Measure #111: Pneumonia Vaccination: Pneumococcal vaccine NOT administered or previously given Measure #47: Advance Care Plan: Advance care planning discussed & documented, pt chose/unable to give Measure #412: Opioid Treatment Agreement: Documented signed opioid trtmnt agreemnt min once during opioid trtmnt Measure #408: Opioid Therapy Follow-up Evaluation: Patient had f/u eval minimum every 3 months during opioid therapy Measure #317: Preventitive Care & Scrn High Bld Press & F/U: Preoperative, follow-up with primary care physician Measure #128: Body Mass Index (BMI) Screening & Follow-up: BMI documented within normal parameters Measure #131: Pain Assessment & Follow-up: Pain positive & plan documented, Follow-up as needed Measure #431: Unhealthy Alcohol Use Preventative Care & Scrn: Patient not identified as an unhealthy alcohol user PQRS Measure Charge Sheet PQRS Narrative: Smoking Status Former smoker Pain Intensity [Right Anterior 3 Foot] Hx Alcohol Use (MH) No Home Medications: Ambulatory Orders No Known Home Medications 04/01/19 Controlled Substance Measures - Controlled Substance Measures Is patient prescribed a controlled substance at discharge?: No
== END | disposition home or self-care (01) ==
CPT/HCPCS: 99211

== ENCOUNTER 2019-12-06 05:38 | Emergency (ER) | payer OTHER ==
[2019-12-06 05:41] VITALS: BP 141/94; PULSE 70; RESP 20; TEMP 98.5
[2019-12-06] MEDS ORDERED: ACET/COD 300 MG/30 MG STARTER PACK 6 TAB BTL PO STA (06:22)
--- NOTE | 2019-12-06 06:22 | ED ---
ENT HPI - General Chief complaint: Dental/Oral Stated complaint: dental pain Time Seen by Provider: 12/06/19 05:59 Source: patient Mode of arrival: ambulatory Limitations: no limitations - History of Present Illness Initial comments: Patient is a 34-year-old male presenting to emergency Department with complaints of left lower side dental pain that increased early this morning. Patient states he went to his dentist last week and was started on amoxicillin secondary to dental pain and states he does know he needs to have his wisdom teeth removed. Patient states he was supposed to have removed on , 4 days ago but canceled the appointment since it was feeling better. Patient states he woke up early this morning with a 9 out of 10 dental pain. Patient states he took an ibuprofen and came to the ER. Patient states as he is sitting in the ER he said the pain has been decreasing. It scurrently 10. He denies any recent fever, chills. He states he canceled that appointment secondary to not having insurance at the moment. He states he is on Workmen's Comp. He denies sore throat, trouble swallowing, swelling. He has no further complaints at this time. Upon arrival to the ER his vitals are stable. - Related Data Home Medications Medication Instructions Recorded Confirmed No Known Home Medications 04/01/19 08/30/19 Allergies Allergy/AdvReac Type Severity Reaction Status Date / Time No Known Allergies Allergy Verified 12/06/19 05:41 Review of Systems ROS Statement: Those systems with pertinent positive or pertinent negative responses have been documented in the HPI. ROS Other: All systems not noted in ROS Statement are negative. Past Medical History Past Medical History: Mitral Valve Prolapse (MVP) Additional Past Medical History / Comment(s): Fell off ladder at work 12/16/18 w/ injury to Rt ankle, ongoing pain following surgery. History of Any Multi-Drug Resistant Organisms: None Reported Past Surgical History: Orthopedic Surgery Additional Past Surgical History / Comment(s): SX TO RT LEG-FOR SHATTERED FIBULA/TIBULA AND ANKLE. PAIN CLINIC PROCEDURE Past Anesthesia/Blood Transfusion Reactions: No Reported Reaction Past Psychological History: No Psychological Hx Reported Smoking Status: Former smoker Past Alcohol Use History: None Reported Past Drug Use History: Marijuana - Past Family History Mother Family Medical History: No Reported History General Exam - General Exam Comments Initial Comments: GENERAL: Patient is well-developed and well-nourished. Patient is nontoxic and in no acute distress. HEAD: Atraumatic, normocephalic. EYES: Pupils equal round and reactive to light, extraocular movements intact, sclera anicteric, conjunctiva are normal. Eyelids were unremarkable. ENT: TMs normal, nares patent, oropharynx clear without exudates. Moist mucous membranes. Patient has some mild pain to palpation of the left lower gumline, there is no visible abscess, no erythema. NECK: Normal range of motion, supple without lymphadenopathy or JVD. LUNGS: Unlabored respirations. Breath sounds clear to auscultation bilaterally and equal. No wheezes rales or rhonchi. HEART: Regular rate and rhythm without murmurs, rubs or gallops. ABDOMEN: Soft, nontender, normoactive bowel sounds. No guarding, no rebound. No masses appreciated. : Deferred MUSCULOSKELETAL: Normal extremities with adequate strength and normal range of motion, no pitting or edema. No clubbing or cyanosis. NEUROLOGICAL: Patient is alert and oriented x 3. Motor and sensory are also intact. Cranial nerves II through XII grossly intact. Symmetrical smile. Normal speech, normal gait. PSYCH: Normal mood, normal affect. SKIN: Warm, Dry, normal turgor, no rashes or lesions noted. Limitations: no limitations Course Vital Signs 12/06/19 05:38 Temperature 98.5 F Pulse Rate 70 Respiratory 20 Rate Blood Pressure 141/94 O2 Sat by Pulse 97 Oximetry Medical Decision Making - Medical Decision Making Patient is a 34-year-old male coming with left lower dental pain that increased early this morning. Patient took an ibuprofen before coming to the ER now his pain is decreasing. He states he recently finished a course of amoxicillin given by his dentist and also canceled an appointment to have this wasn't teeth removed 4 days ago. There is no visible abscess or erythema of the gumline at this time. Patient declined any pain medication at this time. I will send him home with a Tylenol 3 starter pack in case the pain increases later on today. I recommended continuing with ibuprofen and may alternate with Tylenol 3 if symptoms become more severe. I recommend following up with his dentist. He is in agreement with this plan of care. He is stable for discharge. Disposition Clinical Impression: Toothache Disposition: HOME SELF-CARE Condition: Stable Instructions (If sedation given, give patient instructions): Toothache (ED) Additional Instructions: Please return to the Emergency Department if symptoms worsen or any other concerns. Follow-up with your dentist. Alternate ibuprofen and Tylenol every 4-6 hours for more severe pain. Is patient prescribed a controlled substance at d/c from ED?: No Referrals: None,Stated [Primary Care Provider] - 1-2 days
== END 2019-12-06 06:29 | disposition home or self-care (01) ==
LOC: EC 05:38
DX: K08.89 Other specified disorders of teeth and supporting structures (principal); Z87.891 Personal history of nicotine dependence
CPT/HCPCS: 99282

== ENCOUNTER → 2020-02-21 | Outpatient (CLI) | payer OTHER ==
[2020-02-21 14:16] VITALS: BP 125/84; PULSE 90; RESP 16; TEMP 98
--- NOTE | 2020-02-21 14:37 | P.PN ---
Subjective Progress Note Date: 02/21/20 Ry is a 34-year-old gentleman with a chief complaint of right foot pain. He is status post fall at work and had surgery december 2018 on his right foot. He had a bimalleolar fracture which was repaired surgically. He is being evaluated for possible CRPS type 1 Right lower extremiteies . He underwent lumbar sympathetic block x2 . He got good pain relief after the first lumbar surgery the block and he gets no benefit after the second one, patient was given prescription for Lyrica but he was not able to get it because he does not have a valid ID card . Patient continued to do physical therapy, and he continued to have severe pain radiated from the mid calf to the right foot mainly at the l ateral aspect of the calf and the right foot, he describes his pain as aching and burning pain, and he feels that his foot on fire, he complained of occasional discoloration in his right ankle and right foot. Review of systems is negative for chest pain, shortness of breath, new onset weakness, numbness/tingling, abdominal pain, malaise, fever, night sweats, chills, homicidal or suicidal ideation, or bowel or bladder incontinence. Objective - Vital Signs Vital signs: Vital Signs Temp 98.0 F 02/21/20 14:14 Pulse 90 02/21/20 14:14 Resp 16 02/21/20 14:14 BP 125/84 02/21/20 14:14 Pulse Ox 93 L 02/21/20 14:14 - Exam Physical exam: Vitals: Reviewed in EMR GENERAL: Well appearing, in no acute distress PSYCH: Mood and affect is appropriate. Awake, alert, and oriented SKIN: Skin color, texture, turgor normal, no rashes or lesions HEENT: Normocephalic, atraumatic. EOM intact CV: No pedal edema RESP: Respirations are unlabored, no audible wheezing GI: Abdomen non-distended MUSCULOSKELETAL: Bilateral lower extremity strength is normal and symmetric. No atrophy or tone abnormalities are noted. Right lower extremity: There are areas of discoloration on the right foot compared to the left,. Right foot appears smaller than left foot. Toes appear slightly swollen compared to left foot. Nail changes are evident on right side compared to left. Surgical scars are well-healed, although he does have one palpable hardware piece on the lateral aspect of the right ankle. Range of motion of right ankle is limited. Allodynia in lateral 3 toes, greatest in the fifth digit- on the right side Lumbar spine: No pain to palpation over the lumbar spine and paraspinous muscles. Right groin: No obvious swelling, no palpable lumps. NEUR: No loss of sensation is noted except in right foot which has allodynia. Assessment and Plan Plan: # possible complex regional pain syndrome type I of the right ankle Plan: The patient has symptoms and signs of complex regional pain syndrome in the form of motor changes, sensory changes, pseudomotor changes and vasomotor changes. According to [place] criteria, he meets a diagnosis of arthritis, however, CRPS is diagnosis of exclusion. The patient continue to Have Physical Therapy Discussed with the patient the option of repeating right side lumbar sympathetic block he is not willing to proceed Patient could not get the prescription for Lyrica filled because he does not have a rounded ID card. Patient given prescription for Cymbalta 30 mg by mouth daily for 30 days and after that he be started on Cymbalta 60 mg by mouth daily 30 tablets with one refill and patient could follow up in the pain clinic in 8-10 weeks PQRS Measure Charge Sheet Measure #130: Documentation of Current Meds in Medical Chart: Patient's medications documented in chart Measure #226: Tobacco Use: Screen & Cessation Intervention: Pt not a tobacco user Measure #111: Pneumonia Vaccination: Pneumococcal vaccine NOT administered or previously given Measure #47: Advance Care Plan: Advance care planning discussed & documented, pt chose/unable to give Measure #412: Opioid Treatment Agreement: Documented signed opioid trtmnt agreemnt min once during opioid trtmnt Measure #408: Opioid Therapy Follow-up Evaluation: Patient had f/u eval minimum every 3 months during opioid therapy Measure #317: Preventitive Care & Scrn High Bld Press & F/U: Preoperative, follow-up with primary care physician Measure #128: Body Mass Index (BMI) Screening & Follow-up: BMI documented within normal parameters Measure #131: Pain Assessment & Follow-up: Pain positive & plan documented, Follow-up as needed Measure #431: Unhealthy Alcohol Use Preventative Care & Scrn: Patient not identified as an unhealthy alcohol user Time with Patient: Less than 30
== END | disposition home or self-care (01) ==
LOC: PNWHC3 14:03
PROVIDERS: ATTEND Specialist
DX: M79.671 Pain in right foot (principal)
CPT/HCPCS: 99211

== ENCOUNTER → 2020-04-17 | Outpatient (CLI) | payer OTHER ==
--- NOTE | 2020-04-17 11:48 | P.PN ---
Subjective Progress Note Date: 04/17/20 Ry is a 34-year-old gentleman with a chief complaint of right foot pain. He is status post fall at work and had surgery december 2018 on his right foot. He had a bimalleolar fracture which was repaired surgically. He is being evaluated for possible CRPS type 1 Right lower extremiteies . He underwent lumbar sympathetic block x2 . He got good pain relief after the first lumbar surgery the block and he gets no benefit after the second one, patient was given prescription for Lyrica but he was not able to get it because he does not have a valid ID card . Patient done physical therapy, and he continued to have severe pain radiated from the mid calf to the right foot mainly at the lateral aspect of the calf and the right foot, he describes his pain as aching and burning pain, and he feels that his foot on fire, he complained of occasional discoloration in his right ankle and right foot. Review of systems is negative for chest pain, shortness of breath, new onset weakness, numbness/tingling, abdominal pain, malaise, fever, night sweats, chills, homicidal or suicidal ideation, or bowel or bladder incontinence. Last visit we started patient on Cymbalta and he reported that he stopped taking Cymbalta because he had side effects from it and he did not like the feeling Cymbalta and gave it to him and he has difficulty sleeping at night from the Cymbalta Physical exam: Vitals: Reviewed in EMR GENERAL: Well appearing, in no acute distress PSYCH: Mood and affect is appropriate. Awake, alert, and oriented SKIN: Skin color, texture, turgor normal, no rashes or lesions HEENT: Normocephalic, atraumatic. EOM intact CV: No pedal edema RESP: Respirations are unlabored, no audible wheezing GI: Abdomen non-distended MUSCULOSKELETAL: Bilateral lower extremity strength is normal and symmetric. No atrophy or tone abnormalities are noted. Right lower extremity: There are areas of discoloration on the right foot compared to the left,. Right foot appears smaller than left foot. Toes appear slightly swollen compared to left foot. Nail changes are evident on right side compared to left. Surgical scars are well-healed, although he does have one palpable hardware piece on the lateral aspect of the right ankle. Range of motion of right ankle is limited. Allodynia in lateral 3 toes, greatest in the fifth digit- on the right side Lumbar spine: No pain to palpation over the lumbar spine and paraspinous muscles. Right groin: No obvious swelling, no palpable lumps. NEUR: No loss of sensation is noted except in right foot which has allodynia. Assessment and Plan # possible complex regional pain syndrome type I of the right ankle Plan: The patient has symptoms and signs of complex regional pain syndrome in the form of motor changes, sensory changes, pseudomotor changes and vasomotor changes. According to [place] criteria, he meets a diagnosis of arthritis, however, CRPS is diagnosis of exclusion. The patient had no benefit from Physical Therapy Discussed with the patient the option of repeating right side lumbar sympathetic block he is not willing to proceed Patient could not get the prescription for Lyrica filled because he does not have a rounded ID card. Patient had side effects from Cymbalta Patient given prescription for amitriptyline 10 mg daily at bedtime for one week then increased after that to 2 tablets by mouth daily at bedtime after that She'll follow up in the pain clinic in 1 month's PQRS Measure Charge Sheet Measure #130: Documentation of Current Meds in Medical Chart: Patient's m edications documented in chart Measure #226: Tobacco Use: Screen & Cessation Intervention: Pt not a tobacco user Measure #111: Pneumonia Vaccination: Pneumococcal vaccine NOT administered or previously given Measure #47: Advance Care Plan: Advance care planning discussed & documented, pt chose/unable to give Measure #412: Opioid Treatment Agreement: Documented signed opioid trtmnt agreemnt min once during opioid trtmnt Measure #408: Opioid Therapy Follow-up Evaluation: Patient had f/u eval minimum every 3 months during opioid therapy Measure #317: Preventitive Care & Scrn High Bld Press & F/U: Preoperative, follow-up with primary care physician Measure #128: Body Mass Index (BMI) Screening & Follow-up: BMI documented within normal parameters Measure #131: Pain Assessment & Follow-up: Pain positive & plan documented, Follow-up as needed Measure #431: Unhealthy Alcohol Use Preventative Care & Scrn: Patient not identified as an unhealthy alcohol user Time with Patient: Less than 30 Objective - Vital Signs Vital signs: Vital Signs Temp 98.2 F 04/17/20 11:36 Pulse 66 04/17/20 11:36 Resp 16 04/17/20 11:36 BP 123/79 04/17/20 11:36 Pulse Ox 98 04/17/20 11:36
== END | disposition home or self-care (01) ==
DX: M79.671 Pain in right foot (principal)
CPT/HCPCS: 99211

== ENCOUNTER → 2020-06-27 | Outpatient (CLI) | payer OTHER ==
--- NOTE | 2020-06-27 22:36 | MR ---
Result: History: S82.850Q. Right ankle pain. Prior fracture and surgery. Comparison: Radiograph 12/16/2018. Technique: Routine multisequence magnetic resonance imaging examination of the right ankle was perfor med without the administration of gadolinium based intravenous contrast. Findings: Prior distal tibia and fibula ORIF with susceptibility artifact artifact, limiting evaluation of surr ounding structures. No acute fracture or dislocation. No significant bone marrow edema. There is smal l 0.4 cm round fluid focus within the mid calcaneus, compatible with ghost tract. There is heterogeneity of the deltoid ligament, compatible with prior grade 1/2 sprain. The anterior talofibular ligament is not visualized and suboptimally evaluated. The flexor, extensor, peroneal, and Achilles tendons are grossly intact. However limited visualizatio n of the peroneal tendons. The sinus tarsi is unremarkable. There is no significant joint effusion. The plantar fascia is unremarkable. No significant soft tissue abnormality. Impression: Distal tibia and fibula ORIF. Limited evaluation of the ligaments and tendons. Prior sprain of the deltoid ligament. ATFL not seen and cannot be assessed. No acute osseous or significant tendon abnormality. Recommend sonographic correlation.
== END | disposition home or self-care (01) ==
LOC: RADMRIMAIN 15:30
PROVIDERS: ATTEND Orthopaedic Surgery
DX: S82.851D Displaced trimalleolar fracture of right lower leg, subsequent encounter for closed fracture with routine healing (principal)